=== PATIENT | female | born 1995 ===

== ENCOUNTER 2017-06-21 13:04 | Emergency (ER) | payer OTHER ==
[2017-06-21 13:24] VITALS: BP 131/67
--- NOTE | 2017-06-21 13:31 | UC ---
Throat Pain/Nasal Roman HPI - HPI Summary HPI Summary: Pt presents with fever, sore throat, and tender tonsillar lymph nodes for the last 2 days. Says she had mono last year at this time, but did not feel like this - mono made her feel much more fatigued and body aches. Has been taking ibuprofen for her symptoms with good relief. Able to eat and drink without difficulty. Denies cough, SOB, chest pain, abdominal pain, n/v/d/c. - History of Current Complaint Hx Obtained From: Patient Hx Last Menstrual Period: 01/22/16 Onset/Duration: Sudden Onset Severity: Moderate Pain Intensity: 6 Pain Scale Used: 0-10 Numeric <Raphael Bradshaw - Last Filed: 06/21/17 14:02> <Rochelle Villafana - Last Filed: 06/21/17 14:15> - History of Current Complaint Chief Complaint: UCGeneralIllness Stated Complaint: SORE THROAT Time Seen by Provider: 06/21/17 13:30 - Allergies/Home Medications Allergies/Adverse Reactions: Allergies Allergy/AdvReac Type Severity Reaction Status Date / Time No Known Allergies Allergy Verified 06/21/17 13:24 PMH/Surg Hx/FS Hx/Imm Hx Previously Healthy: Yes - Surgical History Surgical History: None - Family History Known Family History: Negative: Diabetes - Social History Occupation: Student Lives: With Family Alcohol Use: Occasionally Substance Use Type: None Smoking Status (MU): Never Smoked Tobacco <Raphael Bradshaw - Last Filed: 06/21/17 14:02> Review of Systems Constitutional: Fever Skin: Negative Eyes: Negative ENT: Sore Throat Respiratory: Negative Cardiovascular: Negative Gastrointestinal: Negative Neurovascular: Negative Musculoskeletal: Negative Neurological: Headache Psychological: Negative All Other Systems Reviewed And Are Negative: Yes <Raphael Bradshaw - Last Filed: 06/21/17 14:02> Physical Exam - Summary Physical Exam Summary: GENERAL: NAD. WDWN. No pain distress. SKIN: No rashes, sores, ulcers, masses, lesions. HEENT: Head: AT/NC Eyes: Conjunctiva clear without inflammation or discharge. Ears: Hearing grossly normal. TMs intact, no bulging, erythema, or edema. Nose: Nasal mucosa pink and moist. NTTP maxillary and frontal sinus. Throat: Posterior oropharynx moderate erythema and 3+ tonsillar enlargement with moderate exudates. Uvula midline. No hoarse voice or muffled voice. NECK: Supple. Tender anterior cervical LAD CHEST: CTAB. No r/r/w. No accessory muscle use. Breathing comfortably and in no distress. CV: RRR. Without m/r/g. Pulses intact. Brisk cap refill. NEURO: Alert. CN II-XII grossly intact. PSYCH: Age appropriate behavior. Triage Information Reviewed: Yes Vital Signs: Initial Vital Signs Temp 97.8 F 06/21/17 13:21 Pulse 77 06/21/17 13:21 Resp 14 06/21/17 13:21 BP 131/67 06/21/17 13:21 Pulse Ox 100 06/21/17 13:21 <Raphael Bradshaw - Last Filed: 06/21/17 14:02> Vital Signs: Initial Vital Signs Temp 97.8 F 06/21/17 13:21 Pulse 77 06/21/17 13:21 Resp 14 06/21/17 13:21 BP 131/67 06/21/17 13:21 Pulse Ox 100 06/21/17 13:21 <Rochelle Villafana - Last Filed: 06/21/17 14:15> Throat Pain/Nasal Course/Dx - Course Course Of Treatment: POC strep positive. She tells me that she was on Amoxicillin about a month ago for a sinus infection - will rx for Augmentin today. - Differential Dx/Diagnosis Provider Diagnoses: Strep pharyngitis <Raphael Bradshaw - Last Filed: 06/21/17 14:02> Discharge - Sign-Out/Discharge Documenting (check all that apply): Discharge - Billing Disposition and Condition Condition: STABLE Disposition: HOME <Raphael Bradshaw - Last Filed: 06/21/17 14:02> - Billing Disposition and Condition Condition: STABLE Disposition: HOME <Rochelle Villafana - Last Filed: 06/21/17 14:15> - Discharge Plan Condition: Stable Disposition: HOME Prescriptions: Amoxicillin/Clavulanate TAB* [Augmentin TAB 875*] 875 mg PO BID #20 tab Patient Education Materials: Strep Throat (DC) Referrals: No Primary Care Phys,NOPCP [Primary Care Provider] - Additional Instructions: If you develop a fever, shortness of breath, chest pain, new or worsening symptoms - please call your PCP or go to the ED. Attestation Statement User Type: Provider - I was available for consult. This patient was seen by the DIANA. The patient was not presented to, seen by, or examined by me. -Geovany <Rochelle Villafana - Last Filed: 06/21/17 14:15>
== END 2017-06-21 14:10 | disposition home or self-care (01) ==
LOC: UCCORT 13:04
DX: J02.0 Streptococcal pharyngitis (principal)
CPT/HCPCS: 87651; 99212; G0463

== ENCOUNTER 2017-07-01 17:52 | Emergency (ER) | payer OTHER ==
[2017-07-01 19:26] VITALS: BP 148/83
--- NOTE | 2017-07-01 19:40 | UC ---
General HPI - HPI Summary HPI Summary: on 06/21/17, pt seen here and dx with strep throat. tx augmentin. did get better. 2 days ago while on her augmentin, pt got recurrent sore throat, swollen tonsils and white on tonsils. she now has a runny nose as well. she took her last dose of augmentin today. levar israel repeated a rapid strep yesterday and it was neg. for fever, sob, n/v/d or bodyaches. pt had mon 2 years ago. - History of Current Complaint Hx Obtained From: Patient Hx Last Menstrual Period: 06/16/17 Onset/Duration: Gradual Onset Timing: Constant Pain Intensity: 0 Aggravating: nothing Alleviating: nothing Associated Signs & Symptoms: Negative: Fever <Jessie Madera - Last Filed: 07/01/17 21:33> <Rochelle Villafana - Last Filed: 07/01/17 21:47> - History of Current Complaint Chief Complaint: UCGeneralIllness Stated Complaint: SINUS, SORE THROAT Time Seen by Provider: 07/01/17 19:32 - Allergy/Home Medications Allergies/Adverse Reactions: Allergies Allergy/AdvReac Type Severity Reaction Status Date / Time No Known Allergies Allergy Verified 07/01/17 19:27 PMH/Surg Hx/FS Hx/Imm Hx - Additional Past Medical History Additional PMH: strep throat, deviated septum - Surgical History Surgical History: None - Family History Known Family History: Negative: Diabetes - Social History Occupation: Student Lives: Dormitory/Roommates Alcohol Use: Occasionally Substance Use Type: None Smoking Status (MU): Never Smoked Tobacco - Immunization History Vaccination Up to Date: Yes <Jessie Madera - Last Filed: 07/01/17 21:33> Review of Systems Constitutional: Negative Skin: Negative Eyes: Negative ENT: Sore Throat, Sinus Congestion Respiratory: Negative Cardiovascular: Negative Gastrointestinal: Negative Genitourinary: Negative Motor: Negative Neurovascular: Negative Musculoskeletal: Negative Neurological: Negative Psychological: Negative Is Patient Immunocompromised?: No All Other Systems Reviewed And Are Negative: Yes <Jessie Madera - Last Filed: 07/01/17 21:33> Physical Exam Triage Information Reviewed: Yes Appearance: Well-Appearing Vital Signs: Initial Vital Signs Temp 98.5 F 07/01/17 19:22 Pulse 94 07/01/17 19:22 Resp 20 04/11/18 19:22 BP 148/83 07/01/17 19:22 Pulse Ox 100 07/01/17 19:22 Vital Signs Reviewed: Yes Eyes: Positive: Conjunctiva Clear ENT: Positive: Pharyngeal erythema, Nasal drainage - clear, TMs normal, Tonsillar exudate, Uvula midline. Negative: Trismus, Muffled voice, Hoarse voice, Sinus tenderness Neck: Positive: Supple, Enlarged Nodes @ - peritonsilar with tenderness Respiratory: Positive: Lungs clear, Normal breath sounds Cardiovascular: Positive: RRR, No Murmur Abdomen Description: Positive: Nontender, No Organomegaly, Soft Bowel Sounds: Positive: Present Musculoskeletal: Positive: ROM Intact Neurological: Positive: Alert Psychological: Positive: Age Appropriate Behavior Skin Exam: Normal <Jessie Madera - Last Filed: 07/01/17 21:33> Vital Signs: Initial Vital Signs Temp 98.5 F 07/01/17 19:22 Pulse 94 07/01/17 19:22 Resp 20 07/01/17 19:22 BP 148/83 07/01/17 19:22 Pulse Ox 100 07/01/17 19:22 <Rochelle Villafana - Last Filed: 07/01/17 21:47> Diagnostics - Laboratory Diagnostic Studies Completed/Ordered: throat culture pending <Jessie Madera - Last Filed: 07/01/17 21:33> Course/Dx - Course Course Of Treatment: exam c/w URI and tonsillitis. both evolved while on augmentin and rapid strep at the [facility] was neg yesterday thus most c/w viral illness; however, we do have a tc pending. i think the risk of repeat antibiotics does not out weight benefit of repeat antibiotics because pt is not toxic and no cpncern for abscess. tx supportive. pt comfortable with plan and will seek tx immediately for any worsening. f/u with pcp and her ent next month encouraged. - Differential Dx - Multi-Symptom Provider Diagnoses: URI, Tonsillitis <Jessie Madera - Last Filed: 07/01/17 21:33> Discharge - Sign-Out/Discharge Documenting (check all that apply): Discharge - Billing Disposition and Condition Condition: STABLE Disposition: HOME <Jessie Madera - Last Filed: 07/01/17 21:33> - Billing Disposition and Condition Condition: STABLE Disposition: HOME <Rochelle Villafana - Last Filed: 07/01/17 21:47> - Discharge Plan Condition: Stable Disposition: HOME Patient Education Materials: Upper Respiratory Infection (ED), Tonsillitis (ED) Referrals: No Primary Care Phys,NOPCP [Primary Care Provider] - Additional Instructions: FOLLOW UP [facility] FOR A RECHECK IN 5 OR SOONER OF WORSE. CALL YOUR ENT AND PCP FOR F/U WHEN YOU RETURN HOME NEXT MONTH. Attestation Statement User Type: Provider - I was available for consult. This patient was seen by the DIANA. The patient was not presented to, seen by, or examined by me. -Ljj <Rochelle Villafana - Last Filed: 07/01/17 21:47> Addendum entered and electronically signed by Jessie Madera PA 07/01/17 21:34 :
== END 2017-07-01 20:16 | disposition home or self-care (01) ==
LOC: UCCORT 17:52
DX: J03.90 Acute tonsillitis, unspecified (principal); J06.9 Acute upper respiratory infection, unspecified
CPT/HCPCS: 87070; 99211; G0463